=== PATIENT | male | born 1950 | race Caucasian/White ===

== ENCOUNTER 2020-12-26 20:30 | Emergency (ER) | payer MEDICARE ==
[~2020-12-26] VITALS: Ht 180.3 cm; Wt 70.2 kg
[2020-12-26] MEDS ORDERED: LIDOCAINE 1%, 10ML INFIL ONE (21:00)
[2020-12-26] MEDS ORDERED: LIDOCAINE-MPF 1%, 5ML ONE (22:58)
--- NOTE | 2020-12-26 23:14 | NUR ---
WOUND CLEANED, SUTURE SET UP AT THIS TIME
--- NOTE | 2020-12-26 23:25 | NUR ---
SANDY TO BEDSIDE FOR SUTURES AT THIS TIME
[2020-12-27] MEDS ORDERED: NEOSPORIN OINT. PKT 1 PACKET ONE (00:01)
--- NOTE | 2020-12-27 00:13 | NUR ---
Patient/Caregiver given discharge instructions and they have confirmed that they understand the instructions. Patient ambulatory with steady gait. NAD, all questions answered appropriately, denies additional needs at this time. No personal belongings left in room after discharge.
[2020-12-27 00:15] VITALS: BP 125/76
== END 2020-12-27 00:16 | disposition home or self-care (01) ==
LOC: ED 20:40
DX: S02.2XXA Fracture of nasal bones, initial encounter for closed fracture (principal); S61.012A Laceration without foreign body of left thumb without damage to nail, initial encounter; W01.0XXA Fall on same level from slipping, tripping and stumbling without subsequent striking against object, initial encounter; Y93.89 Activity, other specified; Y92.89 Other specified places as the place of occurrence of the external cause; Y99.8 Other external cause status
CPT/HCPCS: 12002; 70160; 99283